=== PATIENT | female | born 1985 | race Caucasian/White ===

== ENCOUNTER → 2022-09-18 | Outpatient (CLI) | payer OTHER ==
[~2022-09-18] MED LIST: ALBUTEROL0.09 MG/A2 IH; ANAPROX DS550 MG PO; AZO-CRANBERRY450 MG PO; CIPRO500 MG PO; CLINDAMYCIN HC300 MG PO; CLOTRIM ANTIFUNGAL1% T; CORTISPORIN SUS10 ML OT; FLEXERIL10 MG PO; FLEXERIL5 MG PO; ITRACONAZOLE100 MG PO; KEFLEX500 MG PO; MOTRIN800 MG PO; NAPROSYN500 MG PO; NO DAILY MEDS; NORCO 325 MG-51 TAB PO; Nystatin Cream15 GM T; PEN-V500 MG PO; PREDNICOT20 MG PO; TERBINAFINE250 MG PO; VIBRAMYCIN100 MG PO; VISTARIL50 MG PO; VOLTAREN50 M1 PO; ZOFRAN ODT4 MG SL; ZOFRAN ODT8 MG PO
== END | disposition home or self-care (01) ==
LOC: LAB 17:06
PROVIDERS: ATTEND Nurse Practitioner Family
DX: E03.9 Hypothyroidism, unspecified (principal); R63.5 Abnormal weight gain; R73.01 Impaired fasting glucose; I89.0 Lymphedema, not elsewhere classified; Z83.3 Family history of diabetes mellitus

== ENCOUNTER → 2023-04-27 | Outpatient (CLI) | payer OTHER | END | disposition home or self-care (01) | LOC: RAD 10:17 | PROVIDERS: ATTEND Chiropractor | DX: M47.817 Spondylosis without myelopathy or radiculopathy, lumbosacral region (principal); M54.50 Low back pain, unspecified; Z90.49 Acquired absence of other specified parts of digestive tract ==

== ENCOUNTER → 2023-05-12 | Outpatient (CLI) | payer OTHER | END | disposition home or self-care (01) | LOC: CT 04-16 10:00 | PROVIDERS: ATTEND Internal Medicine Cardiovascular Disease | DX: R60.0 Localized edema (principal); N83.202 Unspecified ovarian cyst, left side; N83.201 Unspecified ovarian cyst, right side; R59.9 Enlarged lymph nodes, unspecified ==

== ENCOUNTER 2023-11-23 14:06 | Emergency (ER) | payer OTHER ==
[~2023-11-23] VITALS: Ht 154.9 cm; Wt 77.1 kg
[2023-11-23] MEDS ORDERED: LEVOFLOXACIN750 M2 PO (14:52)
== END 2023-11-23 14:57 | disposition home or self-care (01) ==
LOC: ED 14:06
DX: H66.91 Otitis media, unspecified, right ear (principal); J02.9 Acute pharyngitis, unspecified; F41.9 Anxiety disorder, unspecified; Z98.890 Other specified postprocedural states

== ENCOUNTER 2023-12-28 21:13 | Emergency (ER) | payer OTHER ==
[~2023-12-28] VITALS: Ht 152.4 cm; Wt 74.8 kg
[~2023-12-28 21:13] MED LIST changes: +LEVOFLOXACIN750 M2 PO
[2023-12-28] MEDS ORDERED: Acetaminophen/Hydrocodone 5 MG/325 MG TABLET PO ONE (21:55)
== END 2023-12-28 22:04 | disposition home or self-care (01) ==
LOC: ED 21:13
DX: S62.663A Nondisplaced fracture of distal phalanx of left middle finger, initial encounter for closed fracture (principal); Z98.890 Other specified postprocedural states; W23.0XXA Caught, crushed, jammed, or pinched between moving objects, initial encounter; Y93.89 Activity, other specified; Y92.89 Other specified places as the place of occurrence of the external cause; Y99.8 Other external cause status

== ENCOUNTER 2024-01-20 18:17 | Emergency (ER) | payer OTHER ==
[~2024-01-20] VITALS: Ht 149.8 cm; Wt 77.1 kg
[2024-01-20] MEDS ORDERED: methylPREDNISolone sod succ 125 MG VIAL IM ONE (18:40)
[2024-01-20] MEDS ORDERED: Acetaminophen/Hydrocodone 5 MG/325 MG TABLET PO ONE (18:40)
[2024-01-20] MEDS ORDERED: PREDNISONE10 MG PO (19:34)
== END 2024-01-20 19:29 | disposition home or self-care (01) ==
LOC: ED 18:17
DX: B27.90 Infectious mononucleosis, unspecified without complication (principal); Z98.890 Other specified postprocedural states; Z98.84 Bariatric surgery status

== ENCOUNTER 2025-01-31 19:59 | Emergency (ER) | payer OTHER ==
[~2025-01-31] VITALS: Ht 154.9 cm; Wt 77.6 kg
[~2025-01-31 19:59] MED LIST changes: +PREDNISONE10 MG PO
[2025-01-31 21:48] LABS: BASO # 0.0 10*3/uL (0.0-0.1); BASO % 0.5 % (0.0-1.0); EOS # 0.3 10*3/uL (0.0-0.4); EOS % 4.4 % (1.0-4.0); MEAN CELL VOLUME 84.6 fl (81.0-99.0); MEAN CORPUSCULAR HGB 26.3 pg (27.0-31.0); MEAN PLATELET VOLUME 9.0 fl (9.6-12.3); MONO # 0.6 10*3/uL (0.1-1.0); MONO % 10.1 % (3.0-9.0); NEUT # 2.8 10*3/uL (2.3-7.9); NEUT % 44.9 % (47.0-73.0); NUCLEATED RED BLOOD CELL 0.0 % (0.0-0.0); NUCLEATED RED BLOOD CELL 0.0 10*3/uL (0.0-0.0); PLATELET COUNT AUTOMATED 359 10*3/uL (130-400); RED CELL DISTRI WIDTH 15.2 % (0-14.5)
[2025-01-31 21:58] LABS: ACT PARTIAL THROMBO TIME 25.4 SECONDS (20.0-32.1)
[2025-01-31 22:09] LABS: BUN 11 mg/dl (9-23); SGPT/ALT 23 U/L (5-49)
[2025-01-31] MEDS ORDERED: BUMETANIDE0.5 MG PO (23:14)
[2025-01-31] MEDS ORDERED: BUMETANIDE 0.5 MG TAB PO ONE (23:20)
== END 2025-01-31 23:18 | disposition home or self-care (01) ==
LOC: ED 19:59
PROVIDERS: Nurse Practitioner Family
DX: R60.9 Edema, unspecified (principal); R77.0 Abnormality of albumin; F41.9 Anxiety disorder, unspecified; Z79.01 Long term (current) use of anticoagulants; Z79.899 Other long term (current) drug therapy

== ENCOUNTER 2025-02-06 18:19 | Inpatient (IN) | payer OTHER ==
[~2025-02-06] VITALS: Ht 162.5 cm; Wt 86.7 kg
[~2025-02-06 18:19] MED LIST changes: +BUMETANIDE0.5 MG PO
[2025-02-06 18:29] VITALS: BP 125/48
[2025-02-06 19:11] LABS: BASO # 0.0 10*3/uL (0.0-0.1); BASO % 0.4 % (0.0-1.0); EOS # 0.1 10*3/uL (0.0-0.4); EOS % 1.5 % (1.0-4.0); MEAN CELL VOLUME 86.3 fl (81.0-99.0); MEAN CORPUSCULAR HGB 26.7 pg (27.0-31.0); MEAN PLATELET VOLUME 8.9 fl (9.6-12.3); MONO # 0.4 10*3/uL (0.1-1.0); MONO % 6.1 % (3.0-9.0); NEUT # 5.0 10*3/uL (2.3-7.9); NEUT % 68.5 % (47.0-73.0); NUCLEATED RED BLOOD CELL 0.0 % (0.0-0.0); NUCLEATED RED BLOOD CELL 0.0 10*3/uL (0.0-0.0); PLATELET COUNT AUTOMATED 352 10*3/uL (130-400); RED CELL DISTRI WIDTH 15.5 % (0-14.5)
[2025-02-06 19:33] LABS: BUN 11 mg/dl (9-23)
[2025-02-06] MEDS ORDERED: BUMETANIDE 1 MG/4 ML VIAL IV ONE (19:55)
[2025-02-06] MEDS ORDERED: POTASSIUM CHLORIDE 20 MEQ TAB PO ONE (20:15)
[2025-02-06] MEDS ORDERED: BUPRENORPHINE-1 EAC2 SL (20:53)
[2025-02-06] MEDS ORDERED: VITAMIN D250 MCG PO (20:54)
[2025-02-06] MEDS ORDERED: SEMAGLUTID0.25 MG/0. SQ (20:54)
[2025-02-06] MEDS ORDERED: METHYLPRED-DP4 MG PO (20:55)
[2025-02-06 20:57] VITALS: BP 109/58
[2025-02-06] MEDS ORDERED: BISACODYL 5 MG TAB PO PRN (21:00)
[2025-02-06] MEDS ORDERED: Ondansetron Hydrochloride 4 MG/2 ML VIAL IV PRN (21:00)
[2025-02-06] MEDS ORDERED: Acetaminophen/Hydrocodone 5 MG/325 MG TABLET PO PRN (21:00)
[2025-02-06] MEDS ORDERED: ACETAMINOPHEN 325 MG TAB PO PRN (21:00)
[2025-02-06] MEDS ORDERED: ACETAMINOPHEN 650 MG SUPP R PRN (21:00)
[2025-02-06] MEDS ORDERED: BISACODYL 10 MG SUPP R PRN (21:00)
[2025-02-06] MEDS ORDERED: NYSTATIN 15 GM BOT T SCH (22:00)
[2025-02-07 00:25] VITALS: BP 95/62
[2025-02-07 06:28] LABS: BASO # 0.0 10*3/uL (0.0-0.1); BASO % 0.5 % (0.0-1.0); EOS # 0.2 10*3/uL (0.0-0.4); EOS % 2.8 % (1.0-4.0); MEAN CELL VOLUME 85.1 fl (81.0-99.0); MEAN CORPUSCULAR HGB 26.8 pg (27.0-31.0); MEAN PLATELET VOLUME 9.4 fl (9.6-12.3); MONO # 0.6 10*3/uL (0.1-1.0); MONO % 9.4 % (3.0-9.0); NEUT # 3.6 10*3/uL (2.3-7.9); NEUT % 55.9 % (47.0-73.0); NUCLEATED RED BLOOD CELL 0.0 % (0.0-0.0); NUCLEATED RED BLOOD CELL 0.0 10*3/uL (0.0-0.0); PLATELET COUNT AUTOMATED 308 10*3/uL (130-400); RED CELL DISTRI WIDTH 15.7 % (0-14.5)
[2025-02-07 06:56] LABS: BUN 11 mg/dl (9-23); SGPT/ALT 22 U/L (5-49)
[2025-02-07 07:44] LABS: VITAMIN D, 25-HYDROXY 28.8 ng/mL (30-100)
[2025-02-07 08:00] VITALS: BP 101/62
[2025-02-07] MEDS ORDERED: CYANOCOBALAMIN 500 MCG TAB PO SCH (10:00)
[2025-02-07] MEDS ORDERED: BUMETANIDE 1 MG/4 ML VIAL IV SCH ×2 (10:00)
[2025-02-07] MEDS ORDERED: Cholecalciferol 2,000 UNIT TABLET (50 MCG) PO SCH (10:00)
[2025-02-07] MEDS ORDERED: BUPRENORPHINE HCL/NALOXONE 8 MG-2 MG SL TABLET SL SCH (11:30)
[2025-02-07] MEDS ORDERED: ALBUMIN 25% 100 ML IV ONE (11:30)
[2025-02-07 12:00] VITALS: BP 99/54
[2025-02-07 16:00] VITALS: BP 96/61
[2025-02-07] MEDS ORDERED: AMMONIUM LACTATE 12% LOTION T SCH (18:00)
[2025-02-07 20:00] VITALS: BP 108/51
[2025-02-08] VITALS: BP 100/53
[2025-02-08 06:10] LABS: BASO # 0.0 10*3/uL (0.0-0.1); BASO % 0.5 % (0.0-1.0); EOS # 0.2 10*3/uL (0.0-0.4); EOS % 3.0 % (1.0-4.0); MEAN CELL VOLUME 84.7 fl (81.0-99.0); MEAN CORPUSCULAR HGB 26.3 pg (27.0-31.0); MEAN PLATELET VOLUME 9.1 fl (9.6-12.3); MONO # 0.7 10*3/uL (0.1-1.0); MONO % 10.9 % (3.0-9.0); NEUT # 3.4 10*3/uL (2.3-7.9); NEUT % 53.5 % (47.0-73.0); NUCLEATED RED BLOOD CELL 0.0 % (0.0-0.0); NUCLEATED RED BLOOD CELL 0.0 10*3/uL (0.0-0.0); PLATELET COUNT AUTOMATED 301 10*3/uL (130-400); RED CELL DISTRI WIDTH 15.5 % (0-14.5)
[2025-02-08 06:30] LABS: BUN 10 mg/dl (9-23); SGPT/ALT 20 U/L (5-49)
[2025-02-08 08:00] VITALS: BP 105/64
[2025-02-08 11:07] LABS: HEMOGOLBIN A1C 5.0 % (4.8-5.6)
[2025-02-08] MEDS ORDERED: ALBUMIN 25% 100 ML IV ONE (11:40)
[2025-02-08 11:55] VITALS: BP 101/75
[2025-02-08 16:00] VITALS: BP 104/55
[2025-02-08 20:00] VITALS: BP 91/62
[2025-02-09] VITALS: BP 101/56
[2025-02-09 06:14] LABS: BASO # 0.0 10*3/uL (0.0-0.1); BASO % 0.5 % (0.0-1.0); EOS # 0.2 10*3/uL (0.0-0.4); EOS % 3.2 % (1.0-4.0); MEAN CELL VOLUME 84.5 fl (81.0-99.0); MEAN CORPUSCULAR HGB 26.6 pg (27.0-31.0); MEAN PLATELET VOLUME 9.2 fl (9.6-12.3); MONO # 0.6 10*3/uL (0.1-1.0); MONO % 9.5 % (3.0-9.0); NEUT # 3.3 10*3/uL (2.3-7.9); NEUT % 52.5 % (47.0-73.0); NUCLEATED RED BLOOD CELL 0.0 % (0.0-0.0); NUCLEATED RED BLOOD CELL 0.0 10*3/uL (0.0-0.0); PLATELET COUNT AUTOMATED 307 10*3/uL (130-400); RED CELL DISTRI WIDTH 15.6 % (0-14.5)
[2025-02-09 06:17] LABS: BUN 10 mg/dl (9-23); SGPT/ALT 17 U/L (5-49)
[2025-02-09 08:00] VITALS: BP 107/56
[2025-02-09] MEDS ORDERED: BARIUM SULFATE 2% 450 ML BOT PO SCH (11:00)
[2025-02-09 12:00] VITALS: BP 110/50
[2025-02-09] MEDS ORDERED: IOHEXOL 300 MG/ML 100 ML VIAL IV ONE (12:00)
[2025-02-09 16:00] VITALS: BP 114/67
[2025-02-09 20:00] VITALS: BP 121/62
[2025-02-10] VITALS: BP 112/63
[2025-02-10 06:01] LABS: BASO # 0.0 10*3/uL (0.0-0.1); BASO % 0.4 % (0.0-1.0); EOS # 0.2 10*3/uL (0.0-0.4); EOS % 3.0 % (1.0-4.0); MEAN CELL VOLUME 84.4 fl (81.0-99.0); MEAN CORPUSCULAR HGB 26.8 pg (27.0-31.0); MEAN PLATELET VOLUME 8.8 fl (9.6-12.3); MONO # 0.7 10*3/uL (0.1-1.0); MONO % 9.7 % (3.0-9.0); NEUT # 4.3 10*3/uL (2.3-7.9); NEUT % 59.8 % (47.0-73.0); NUCLEATED RED BLOOD CELL 0.0 % (0.0-0.0); NUCLEATED RED BLOOD CELL 0.0 10*3/uL (0.0-0.0); PLATELET COUNT AUTOMATED 313 10*3/uL (130-400); RED CELL DISTRI WIDTH 15.5 % (0-14.5)
[2025-02-10 06:28] LABS: BUN 12 mg/dl (9-23); SGPT/ALT 18 U/L (5-49)
[2025-02-10 08:00] VITALS: BP 126/73; BP 127/72
[2025-02-10] MEDS ORDERED: BUPRENORPHINE HCL/NALOXONE 8 MG-2 MG SL TABLET SL SCH (10:00)
[2025-02-10 12:00] VITALS: BP 100/62
[2025-02-10] MEDS ORDERED: BUMETANIDE1 MG PO (12:28)
[2025-02-10] MEDS ORDERED: VITAMIN B12500 MC2 PO (12:28)
== END 2025-02-10 13:55 | disposition home or self-care (01) | DRG 606 ==
LOC: ED 18:19 → EDHOLD 19:56 → 5E 19:56
PROVIDERS: Nurse Practitioner Family; Student in an Organized Health Care Education/Training Program; ADMIT Internal Medicine; ATTEND Internal Medicine
DX: I89.0 Lymphedema, not elsewhere classified (principal); E43 Unspecified severe protein-calorie malnutrition; E87.6 Hypokalemia; E83.51 Hypocalcemia; D64.9 Anemia, unspecified; F17.290 Nicotine dependence, other tobacco product, uncomplicated; E87.8 Other disorders of electrolyte and fluid balance, not elsewhere classified; Z71.6 Tobacco abuse counseling; Z78.9 Other specified health status; Z90.49 Acquired absence of other specified parts of digestive tract; Z90.89 Acquired absence of other organs; Z79.899 Other long term (current) drug therapy; Z68.32 Body mass index [BMI] 32.0-32.9, adult

== ENCOUNTER → 2025-02-16 | Outpatient (CLI) | payer OTHER ==
[~2025-02-16] MED LIST changes: +BUMETANIDE1 MG PO; +BUPRENORPHINE-1 EAC2 SL; +METHYLPRED-DP4 MG PO; +SEMAGLUTID0.25 MG/0. SQ; +VITAMIN B12500 MC2 PO; +VITAMIN D250 MCG PO
== END | disposition home or self-care (01) ==
LOC: RESCLI 11:43
PROVIDERS: ATTEND Internal Medicine
DX: I89.0 Lymphedema, not elsewhere classified (principal); K76.0 Fatty (change of) liver, not elsewhere classified; R52 Pain, unspecified; E53.8 Deficiency of other specified B group vitamins; E55.9 Vitamin D deficiency, unspecified; E03.9 Hypothyroidism, unspecified; F17.200 Nicotine dependence, unspecified, uncomplicated; Z71.89 Other specified counseling; Z71.6 Tobacco abuse counseling; Z79.899 Other long term (current) drug therapy; Z98.890 Other specified postprocedural states